=== PATIENT | male | born 1945 | race Native Hawaiian/Other Pacific Islander ===

== ENCOUNTER 2018-03-15 07:55 | Day surgery (SDC) | payer OTHER ==
[2018-03-15] MEDS ORDERED: Nitroglycerin 50mg in D5W 0 MG/0 ML BOTTLE IV ONE (10:17)
[2018-03-15] MEDS ORDERED: Iohexol 350mgl/ml 50 ML ONE ×2 (10:17→11:35)
[2018-03-15] MEDS ORDERED: Lidocaine 2% Inj (20ml) ONE (10:17)
[2018-03-15] MEDS ORDERED: Iodixanol 320 MG/ML 200 ML BOTTLE IV ONE ×2 (10:17→11:35)
[2018-03-15] MEDS ORDERED: Eptifibatide 20 mg/10mL Inj IVP ONE (10:24)
[2018-03-15] MEDS ORDERED: Midazolam 2 MG/2 ML VIAL ONE ×2 (10:42→10:46)
[2018-03-15] MEDS ORDERED: Sodium Chloride 0.9% 1,000 ML IV SCH (11:15)
[2018-03-15 12:02] VITALS: RESP 18; TEMP 97.5
--- NOTE | 2018-03-15 13:59 | CARDCATH ---
PROCEDURE DATE: 03/15/2018 HISTORY: The patient is a 72-year-old male who presented with unstable angina to [facility]. 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 The patient is status post coronary artery bypass surgery, suffers from hypercholesterolemia as well as hypertension. Initial angiogram revealed a critical lesion in the RCA. The patient was transferred here from [facility] for PTCA. PROCEDURES: Coronary arteriography followed by percutaneous transluminal coronary angioplasty and stent of a critically stenosed right coronary artery. The left femoral artery is cannulated with a 6-Romanian sheath. There were no complications. I performed moderate sedation which included the presence of an independent trained observer that assisted in monitoring the patient's level of consciousness and physiologic status. After administration of Versed and fentanyl, my intra-service time was 30 minutes. The findings on catheterization revealed right dominant circulation, the RCA revealed a 99% stenoses in the proximal portion of the stent followed by 70% stenoses in the distal portion of the stent. The patient was started on intravenous Angiomax and given two boluses of intravenous Integrilin. He was pretreated with 300 of Plavix just prior to the procedure. The findings on catheterization were noted. A guiding catheter was placed in the ostium of the RCA and 0.014 ATW wire was used to cross the critical lesion. A 2.5 balloon was utilized to predilate the lesion. This was followed by implantation of a 3.5 x 22 mm drug-eluting stent which was placed and deployed at 15 atmospheres of pressure. After balloon deflation and removal, a repeat coronary arteriography revealed an excellent result with no residual stenoses and ALANNA III flow. Angio-Seal was used to close the left femoral artery site. The patient tolerated the procedure well. In summary, the procedure was successful, PTCA and stent of two lesions in the proximal/mid RCA which represents an in-stent restenosis. A new 3.5 x 22 mm drug-eluting stent was placed and deployed. Coronary arteriography revealed the critical lesion in the RCA. Given these findings, the patient will need to remain on aspirin indefinitely and Plavix for at least a year. Assuming there are no complications, the patient can be transferred back to [facility] at 4 o' clock today. Benito Ponce MD Psychiatric # [id number]
[2018-03-15 15:29] VITALS: PULSE 64
[2018-03-15 17:03] VITALS: BP 110/71
== END 2018-03-15 17:57 | disposition home or self-care (01) ==
LOC: CATH 07:55 → 2RSO 11:21 → CATH 17:57
PROVIDERS: ATTEND Internal Medicine Cardiovascular Disease
DX: T82.855A Stenosis of coronary artery stent, initial encounter (principal); I25.110 Atherosclerotic heart disease of native coronary artery with unstable angina pectoris; I10 Essential (primary) hypertension; E78.00 Pure hypercholesterolemia, unspecified; H26.9 Unspecified cataract; Z95.5 Presence of coronary angioplasty implant and graft; Z95.1 Presence of aortocoronary bypass graft; Z79.82 Long term (current) use of aspirin; Z91.81 History of falling; Y83.1 Surgical operation with implant of artificial internal device as the cause of abnormal reaction of the patient, or of later complication, without mention of misadventure at the time of the procedure
CPT/HCPCS: 93454; 99152; 99153; C1725; C1760; C1769 ×2; C1874; C1887; C2629; C9600; J0583; J1327; J1644; J2250; J3010; J7030; Q9966; Q9967